=== PATIENT | female | born 1960 | race Caucasian/White ===

== ENCOUNTER 2017-03-27 14:26 | Inpatient (IN) | payer MEDICARE ==
--- NOTE | ~2017-03-27 | EKG ---
PATIENT: DANIELLE STAUFFER UNIT #: [id number] Ventricular Rate: 67 BPM Atrial Rate: 67 BPM P-R Interval: 146 ms QRS Duration: 78 ms Q-T Interval: 400 ms QTC Calculation(Bezet): 422 ms P [place]: 83 degrees Calculated R [place]: 91 degrees Calculated T [place]: 81 degrees Diagnosis Line: Normal sinus rhythm Diagnosis Line: Rightward axis Diagnosis Line: Septal infarct , age undetermined Diagnosis Line: Abnormal ECG Diagnosis Line: When compared with ECG of 14-NOV-2016 15:32, Diagnosis Line: Septal infarct is now Present Diagnosis Line: Confirmed by LOPEZ EAST MD ([id number]) on Diagnosis Line: 03/28/2017 8:49:03 AM INTERPRETING MD: CRUZITO HI
--- NOTE | ~2017-03-27 | CO ---
Unit #: [id number] #: [id number] Patient: DANIELLE STAUFFER [id number] [address] [place], [place] [address] [id number] I MR#: [id number] NAME: DANIELLE STAUFFER ROOM: 562 Age: 56 Sex: F Admission Date: 03/27/2017 : 1960 Attending Physician: Maximilian Magallanes M.D. Primary Care Physician: Lala Barroso M.D. Consultation Date: 03/28/2017 CONSULTATION REPORT REASON FOR CONSULTATION Cardiovascular management. HISTORY OF PRESENT ILLNESS This is a 56-year-old white female, well known to our group with a past medical history of COPD, on home oxygen; chronic diastolic congestive heart failure; aortic atheroma, on chronic anticoagulation with Coumadin; hypertension; hyperlipidemia; previous cerebrovascular accident; and seizures. The patient had a cardiac catheterization in 2013, which revealed an 80% to 90% stenosis in the left circumflex. The distal vessel was normal. Left main LAD and right coronary artery were normal. 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 She was continued on medical management. She was seen in the hospital in 11/2016 by Cardiology for atypical chest pain. She also had expressive aphasia and left extremity weakness. Neurology was consulted, and she was diagnosed with a TIA according to discharge summary. Her INR was subtherapeutic, and her Coumadin was adjusted. She presented to the hospital on 03/27/2017 due to increasing weakness, dizziness, and low hemoglobin that was diagnosed in Dr. Barroso's office. She was admitted for symptomatic anemia with a hemoglobin reportedly at 5.6. She was transfused with packed red blood cells, and fecal occult stool was obtained and was negative. CT of the abdomen and pelvis was negative for retroperitoneal hemorrhage. Hematology was consulted. Cardiology was consulted for cardiovascular management. The patient had some shortness of breath, but no reports of PND or orthopnea. She has had some dizziness, but no syncope. She denies palpitations, chest pain, or lower extremity edema. She has been reportedly compliant with medications. However, on admission, INR was subtherapeutic at 1.4. PAST MEDICAL HISTORY 1. Coronary artery disease, status post cardiac catheterization on 09/24/2014, which revealed left main, LAD, and right coronary artery normal. Left circumflex 80% to 90% with distal vessel normal. PDA normal. 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 Medical management. 2D echocardiogram 02/22/2014 revealed a left ventricular ejection fraction of 60% with mild mitral regurgitation and mild tricuspid regurgitation. 2. Transesophageal echocardiogram on 04/13/2016 revealed an ejection fraction of 55%. Mild to moderately dilated left atrium. Bubble study was performed with no shunt across the interatrial septum. Mild to moderately enlarged right atrial size. Mildly dilated right ventricle. Mild mitral regurgitation. Mild tricuspid regurgitation. No evidence of pericardial effusion. Severe atherosclerosis of the aorta with stage IV Unit #: [id number] #: [id number] Patient: DANIELLE STAUFFER atheromas. 3. 24-hour Holter monitor on 12/21/2015 revealed underlying normal sinus rhythm. Very rare premature ventricular complexes. No couplets or ventricular tachycardia. Very rare premature atrial complexes. No AV jairo block, sinus arrest, or sinus pauses. 4. Hypertension. 5. Hyperlipidemia. 6. Nonsustained ventricular tachycardia. 7. Previous cerebrovascular accident and TIA. 8. Seizure disorder. 9. Chronic anemia. 10. COPD, on home oxygen. 11. E coli urinary tract infection. 12. Anemia of chronic disease. 13. History of over anticoagulation with Coumadin, now subtherapeutic. 14. Nonsustained ventricular tachycardia, sinus bradycardia. 15. Chronic diastolic congestive heart failure. 16. Reformed tobacco abuse. 17. History of AV malformation, cauterized on 04/26/2015. PAST SURGICAL HISTORY 1. Cardiac catheterization. 2. Hysterectomy. 3. Removal of abdominal cyst. 4. Colonoscopy on 04/26/2015 revealed AV malformation of 5 mm in cecum. Mild diverticulosis. No active bleeding, polyps, masses, or colitis. Small hemorrhoids. AVM cauterized using APC. 5. EGD with biopsy and colonoscopy on 02/22/2015 with ulcerative gastritis and sigmoid diverticulosis. 6. History of EGD and colonoscopy with snare polypectomy in 09/30/2014. 7. History of intubation and bronchoscopy in 11/07/2013. HOME MEDICATIONS 1. Lipitor 20 mg p.o. at bedtime. 2. Potassium chloride 10 mEq p.o. daily. 3. Isosorbide mononitrate 60 mg p.o. daily. 4. Norvasc 5 mg p.o. daily. 5. Lisinopril 5 mg p.o. daily. 6. Coumadin 1 mg p.o. daily. 7. Acetaminophen 650 mg p.o. every 4 hours p.r.n. for pain. 8. Advair one inhalation p.o. b.i.d. 9. Nitroglycerin 0.4 mg sublingual every 5 minutes x3 for chest pain. 10. Aspirin 81 mg p.o. daily. 11. Albuterol one puff inhalation daily. 12. Symbicort one puff inhalation daily. ALLERGIES Sulfa and prednisone. SOCIAL HISTORY The patient has a history of tobacco abuse. She has been noted to use tobacco intermittently. There are no reports of alcohol or illicit drug use. FAMILY HISTORY Significant for coronary artery disease in both her parents. REVIEW OF SYSTEMS Unit #: [id number] #: [id number] Patient: DANIELLE STAUFFER A 10-point review of systems is negative except for details noted above in HPI. PHYSICAL EXAMINATION Exam completed by Dr. Carrion. VITAL SIGNS: Temperature 97.9, pulse 54, and blood pressure 121/57. CONSTITUTIONAL: This is a 56-year-old white female, in no acute distress. SKIN: Warm and dry. NECK: Supple. No jugular vein distention. No hepatojugular reflux. Normal carotid upstrokes. No carotid bruits auscultated. HEART: S1 and S2. Regular rate and rhythm. No murmurs, rubs, or gallops. LUNGS: Bilateral breath sounds have good air entry throughout all lung barrera. Respirations are even and nonlabored. No rales, rhonchi, or wheezes. ABDOMEN: Soft, nontender, and nondistended. Positive bowel sounds auscultated x4 quadrants. No ascites noted. EXTREMITIES: Bilateral lower extremities have no pretibial pitting edema. DP and PT pulses are 2+. Capillary refill is less than 2 seconds. DIAGNOSTIC STUDIES LABORATORY RESULTS: White blood cell count 7.8, hemoglobin 14.6, hematocrit 45.2, and platelets 158. Sodium 140, potassium 4.9, chloride 103, CO2 of 28, BUN 17, creatinine 0.9, glucose 146. INR 1.4. Troponin 0.05. IMAGING STUDIES: CT of the abdomen and pelvis with contrast reveals no acute findings. Atherosclerotic disease throughout the aorta with mild aneurysmal dilation of the distal descending thoracic aorta and infrarenal abdominal aorta. Chest x-ray reveals COPD with no acute findings. CARDIOVASCULAR STUDIES: Electrocardiogram reveals normal sinus rhythm with a ventricular rate of 67 beats per minute. Rightward axis deviation. No acute ST or T wave changes. QTc 422 milliseconds. IMPRESSION 1. Shortness of air, secondary to chronic obstructive pulmonary disease. 2. Reported anemia, status post 3 units of packed red blood cells. 3. Stable angina. 4. Coronary artery disease with 80% stenosis in the first obtuse margin of the left circumflex on 09/10/2014. 5. History of multiple TIAs secondary to aortic atheromas. 6. Subtherapeutic INR. 7. Normal LV function with an ejection fraction of 55%. PLAN 1. The patient presented to the hospital with reports of anemia as well as dizziness and weakness. She was admitted and transfused with packed red blood cells. 2. Cardiology was consulted for cardiovascular management. 3. The patient has some shortness of breath, which is likely from COPD. There are no reports of chest pain. 4. Her INR is subtherapeutic. Her Coumadin has been increased. Daily PT/INR will be obtained. 5. There is no evidence of congestive heart failure on exam. We will continue oral medications as dosed. Unit #: [id number] #: [id number] Patient: DANIELLE STAUFFER 6. The patient can likely go home tomorrow from a cardiac standpoint. Dictated by... Gianna Alcala APRN for Tyler Weeks TD: 03/30/2017 05:29 JOB #: [id number] CONSULTATION REPORT Page 1 of 1 X X CONSULTATION REPORT
--- NOTE | ~2017-03-27 | EKG ---
PATIENT: DANIELLE STAUFFER UNIT #: [id number] Ventricular Rate: 83 BPM Atrial Rate: 83 BPM P-R Interval: 140 ms QRS Duration: 80 ms Q-T Interval: 368 ms QTC Calculation(Bezet): 432 ms P [place]: 89 degrees Calculated R [place]: 91 degrees Calculated T [place]: 102 degrees Diagnosis Line: Normal sinus rhythm Diagnosis Line: Normal ECG Diagnosis Line: When compared with ECG of 31-MAR-2017 12:50, Diagnosis Line: (unconfirmed) Diagnosis Line: No significant change was found Diagnosis Line: Confirmed by KIRSTEN VILLAFANA MD ([id number]) on Diagnosis Line: 04/03/2017 5:17:48 PM INTERPRETING MD: ROSA M
--- NOTE | ~2017-03-27 | CO ---
Unit #: [id number] #: [id number] Patient: DANIELLE STAUFFER [id number] [address] [address] [id number] I MR#: [id number] NAME: DANIELLE STAUFFER. ROOM: 562 Age: 56 Sex: F Admission Date: 03/27/2017 : 1960 Attending Physician: Maximilian Magallanes M.D. Primary Care Physician: Lala Barroso M.D. CONSULTATION REPORT CHIEF COMPLAINT 1. Anemia. Left-sided lung mass, benign. Lost to followup. 2. CVA, embolic, on Coumadin. HISTORY OF PRESENT ILLNESS This is a 58-year-old female who had a CT of the chest during 10/2014. On the left side there was some abnormal noncalcified nodules. The patient had a PET scan on 11/11/2014. It turned out to be benign. She was lost to followup. The patient has had multiple CVA. They are embolic in nature. The patient has a significant atherosclerosis of the aorta. The patient had a CT of the abdomen and pelvis on 05/27/2017. It confirmed extensive atherosclerosis. In the distal descending thoracic aorta there is an aneurysm measuring 3.2. The patient has been taking Coumadin. Yesterday she came to the [facility] office and hemoglobin was about 5. She came to the hospital, receiving packed red blood cell transfusion. Her PT/INR and CBC are at present in error. I cannot accept the results. The patient had shortness of breath and dyspnea on exertion but it is chronic and nothing new. She was asymptomatic with hemoglobin of 5. PAST MEDICAL HISTORY 1. Left lung nodule, benign. 2. CVA, multiple. 3. Abdominal aortic aneurysm. 4. Chronic obstructive pulmonary disease. SOCIAL HISTORY The patient smoked 1 pack per day for 20 years. She quit many years ago. Denies alcohol use. She used to work in daycare. FAMILY HISTORY Father had myocardial infarction and mother had myocardial infarction. ALLERGIES Sulfa and prednisone. REVIEW OF SYSTEMS CONSTITUTIONAL: No fever, no chills, no sweats, no weight loss. EYES: No visual symptoms. Unit #: [id number] #: [id number] Patient: DANIELLE STAUFFER EARS, NOSE AND THROAT: There is no runny nose or sore throat or difficulty hearing. CARDIOVASCULAR: No chest pain. No shortness of breath. No palpitations. No orthopnea. No PND. RESPIRATORY: As mentioned above. GASTROINTESTINAL: No GI bleed. GENITOURINARY: No urinary frequency, hesitancy or urgency. No blood in the urine. MUSCULOSKELETAL: No muscle or joint pain. NEUROLOGIC: No headache. No numbness or tingling. No weakness. No seizure. PSYCHIATRIC: No anxiety, depression or mood disturbance. ENDOCRINE: No excessive urination or thirst. DERMATOLOGIC: No rash or change in the skin. ALLERGIC/IMMUNOLOGIC: No symptoms. HEMATOLOGIC/LYMPHATIC: Denies any symptoms. PHYSICAL EXAMINATION GENERAL: Patient is comfortable. ECOG is 0. The patient is pleasant. VITAL SIGNS: Blood pressure 130/64, temperature afebrile, pulse 58, respiratory rate 20, O2 saturation on room air 100%. HEENT: Moist mucosa. Pupils equally reactive to light. Extraocular muscles intact. Sclerae anicteric. No obvious bleeding from nasal mucosa or oral mucosa. Scalp normal. Hearing normal. NECK: No JVD. No lymphadenopathy. LYMPHATIC/HEMATOLOGIC: There is no palpable adenopathy in the neck, axilla or inguinal area. CARDIOVASCULAR: S1, S2. Regular rate and rhythm. No S3 or S4. RESPIRATORY: Bilateral wheezes. ABDOMEN/GASTROINTESTINAL: Abdomen is soft, nontender, nondistended. No hepatosplenomegaly. EXTREMITIES: There is no clubbing, no cyanosis, no edema. No varicose veins. NEUROLOGICAL: Patient is alert, awake and oriented x3. Cranial nerves II-XII are intact. Sensory grossly intact. Motor is 4/5 in all four extremities. Gait is normal. Station is normal. Language is normal. Memory is normal. DTRs +2 in all four extremities. MUSCULOSKELETAL: No joint swelling. No bony tenderness. No muscle tenderness. SKIN: No petechiae, no rash, no ecchymosis. PSYCHIATRIC: No anxiety. No delusions or hallucinations. There is no agitation. Eye contact is normal. Affect is appropriate. There is no flight of ideas. DIAGNOSTIC STUDIES LABORATORY: At present her CBC and PT/INR are in error. Creatinine 0.9, LFTs normal. Iron studies are pending. ASSESSMENT/PLAN This is a 56-year-old female with the followin. Left lung nodule. The patient had a PET scan during 11/2014. It was benign. She was lost to followup. As an outpatient will do a CT of the chest. 2. Anemia. She is anticoagulated. This most likely is bleeding from AVM in the presence of Coumadin. She is receiving packed red blood cell transfusion. I will check iron study. If it is low, then we will given IV iron. 3. Other conditions. The patient has had multiple CVAs. They are Unit #: [id number] #: [id number] Patient: DANIELLE STAUFFER embolic in nature. The patient has atherosclerosis in the aorta. The patient has aortic aneurysm. The patient is long-term anticoagulated. All stable. Dictated by... Tyler Solis TD: 03/28/2017 15:29 JOB #: [id number] CONSULTATION REPORT Page 1 of 1 X Young Barnard MD X CONSULTATION REPORT
--- NOTE | ~2017-03-27 | CR72 ---
[facility] A Service of [facility] & [facility] RADIOLOGY TEXT RESULTS PATIENT: DANIELLE STAUFFER LOCATION: [facility] 562- : 58 UNIT #: [id number] AGE: [address]: Maximilian Magallanes MD SEX: F ORDER DR: [id number] [facility] [address]. [place], [place] [address] [id number] I MR#: [id number] Acc #: [id number] NAME: DANIELLE STAUFFER : 1960 SEX: F STUDY DATE/TIME: 03/30/2017 16:46 UNIT: [facility] ROOM: [facility] STUDY DESCRIPTION: CR Chest Single View Portable Attending Physician: Maximilian Magallanes M.D. Ordering Physician: Maximilian Magallanes M.D. Primary Care Physician: Lala Barroso M.D. MEDICAL IMAGING REPORT This report is preliminary unless electronic signature is present EXAM Portable chest HISTORY Shortness of air. Chest congestion, chronic, worse today. FINDINGS There is bilateral emphysema and hyperinflation of both lungs. No airspace infiltrates or effusions. Stable 8 mm nodule in the left upper lung compared to prior chest x-rays dating back to at least 03/31/2015, indicating a benign granuloma. Minimal right lower thoracic curve. IMPRESSION No acute findings. No active disease in the lungs. Mild hyperinflation of both lungs. Stable incidental granuloma in the left upper lung. Dictated by... Chao Kellogg M.D. THIS IS AN ELECTRONICALLY VERIFIED REPORT hCao Kellogg M.D. at 04/02/2017 10:14 AM DFL/pcl TD: 03/30/2017 23:13 JOB #: [id number] MEDICAL IMAGING REPORT Page 1 of 1 COPY
--- NOTE | ~2017-03-27 | CT2 ---
[facility] A Service of [facility] RADIOLOGY TEXT RESULTS PATIENT: DANIELLE STAUFFER LOCATION: [facility] [address] : 58 UNIT #: [id number] AGE: [address]: Maximilian Magallanes MD SEX: F ORDER DR: [id number] [facility] [address] [place], [place] [address] [id number] I MR#: [id number] Acc #: [id number] NAME: DANIELLE STAUFFER. : 1960 SEX: F STUDY DATE/TIME: 03/27/2017 18:21 UNIT: CEDOF ROOM: 86494 STUDY DESCRIPTION: CT Abd and Pelv W Cont Attending Physician: Maximilian Magallanes M.D. Ordering Physician: Woodrow Rodriguez M.D. Primary Care Physician: Lala Barroso M.D. MEDICAL IMAGING REPORT This report is preliminary unless electronic signature is present EXAM CT abdomen and pelvis with contrast INDICATIONS Anemia. Nausea for the past 2 days. PROCEDURE Contrast-enhanced CT abdomen and pelvis. 100 mL of Isovue-370. This CT exam was performed with one or more of the following radiation dose reduction techniques: Automatic exposure control, adjustment of mA and/or kV according to patient size, and iterative reconstruction. COMPARISON 06/05/2016 FINDINGS Emphysematous change in the lung bases. ABDOMEN WITH CONTRAST: Liver, spleen, kidneys, adrenal glands, pancreas, gallbladder unremarkable. The bowel loops are nondilated. Atherosclerotic disease throughout the aorta. The distal descending thoracic aorta measures 3.2 cm. Infrarenal abdominal aorta measures up to 2.8 cm. PELVIS WITH CONTRAST: Previous hysterectomy. No pelvic mass or fluid. No aggressive appearing bone lesion. IMPRESSION 1. No acute findings. 2. Atherosclerotic disease throughout the aorta with mild aneurysmal dilation of the distal descending thoracic aorta and ectasia of the infrarenal abdominal aorta. [facility] A Service of [facility] RADIOLOGY TEXT RESULTS PATIENT: DANIELLE STAUFFER LOCATION: [facility] 562 : 58 UNIT #: [id number] AGE: [address]: Maximilian Magallanes MD SEX: F ORDER DR: Dictated by... Woodrow Friedman M.D. THIS IS AN ELECTRONICALLY VERIFIED REPORT Woodrow Friedman M.D. at 03/28/2017 7:37 AM EED/psc TD: 03/28/2017 00:15 JOB #: [id number] MEDICAL IMAGING REPORT Page 1 of 1 COPY
--- NOTE | ~2017-03-27 | CO ---
Unit #: [id number] #: [id number] Patient: DANIELLE STAUFFER [id number] [address] [place], [place] [address] [id number] I MR#: [id number] NAME: DANIELLE STAUFFER. ROOM: 562 Age: 56 Sex: F Admission Date: 03/27/2017 : 1960 Attending Physician: Maximilian Magallanes M.D. Primary Care Physician: Lala Barroso M.D. Consultation Date: 03/28/2017 CONSULTATION REPORT HISTORY OF PRESENT ILLNESS This is a 56-year-old lady, well known to our service secondary to multiple prior admission. The patient has a history of multiple CVAs, aortic atheroma. The patient is on chronic anticoagulation with coronary artery disease. The patient has CHF, COPD, chronic respiratory failure, seen in the physician's office for PT/INR check. She was told that it was elevated, because the patient was symptomatic, she is having increasing weakness and dizziness. She was sent to the emergency room. CBC showed to be hemoglobin of 5 and directed from the ER to admission, the patient received transfused. Occult blood was negative. CT of the abdomen and pelvis is negative, shows no evidence of hematoma, no evidence of lung disease. The patient denies any other symptoms. No chest pain. No shortness of air. No fevers, chills, cough, nausea, vomiting, diarrhea, dysuria, hematemesis. The patient has no bloody stools. REVIEW OF SYSTEMS The patient has a 12-point review of systems which is negative except as above. PAST MEDICAL HISTORY Significant for asthma, COPD, hypertension, congestive heart failure, history of stroke, TIA, history of seizures, has had PR x2. PAST SURGICAL HISTORY Partial hysterectomy and abdominal cystectomy. ALLERGIES The patient is allergic to sulfa. HOME MEDICATIONS Include lisinopril 5 mg daily, Coumadin 1 mg daily, acetaminophen 650 mg every 4 hours, Advair 1 inhaled b.i.d. 250/50, aspirin 81 mg daily, Ventolin 2 puffs q.4 hours p.r.n., Lipitor 20 mg at bedtime, Klor-Con 10 mEq daily, isosorbide 5 mg daily, nitroglycerin as needed. FAMILY HISTORY Significant for heart disease. SOCIAL HISTORY The patient is an active smoker. Denies alcohol or drugs. PHYSICAL EXAMINATION VITAL SIGNS: T-current 98.0, pulse 58, respiratory rate 20, blood pressure is 100/59, sat 100% on 3 L nasal cannula. Unit #: [id number] #: [id number] Patient: DANIELLE STAUFFER HEENT: Extraocular movements are intact. CHEST: Clear to auscultation bilaterally. NECK: Shows no accessory muscle use. No JVD. No significant lymphadenopathy. The breath sounds are very decreased bilaterally. CARDIOVASCULAR: Irregular. ABDOMEN: Soft, nontender, and nondistended. EXTREMITIES: Shows no significant edema. DIAGNOSTIC STUDIES LABORATORY RESULTS: BNP is 143. INR is 1.4. CBC, white count had been 7.8, platelets of 158, apparently it is currently 10. IMAGING STUDIES: Chest x-ray shows no evidence of infiltrate; therefore, I am going to treat this as a COPD exacerbation. We are going to do nasal swab. We are going to put her on scheduled nebs and inhaled steroids. We will try to hold off on systemic steroids due to the issues with fluid retention. Thank you very much for this consult and allowing us to participate in the care of this patient. Please page me at [phone] if you have any questions. Dictated by... Gabbie Bran M.D. HARLEEN/yanique TD: 03/29/2017 01:26 JOB #: [id number] CONSULTATION REPORT Page 1 of 1 X Suhail Bran MD X CONSULTATION REPORT
--- NOTE | ~2017-03-27 | HP ---
Unit #: [id number] #: [id number] Patient: DANIELLE HOGAN [id number] [address] [address] [id number] MR#: [id number] NAME: DANIELLE HOGAN ROOM: Age: 56 Sex: F Admission Date: 03/27/2017 : 1960 Attending Physician: Mary Hale M.D. Primary Care Physician: Lala Barroso M.D. HISTORY AND PHYSICAL ADMISSION DIAGNOSES 1. Symptomatic anemia. 2. History of aortic atheroma, on chronic anticoagulation. 3. History of multiple cerebrovascular accidents in the past. 4. History of coronary artery disease. 5. Hypertension. 6. Dyslipidemia. 7. History of nonsustained ventricular tachycardia. 8. History of chronic diastolic heart failure. 9. Chronic obstructive pulmonary disease. 10. Chronic respiratory failure, on home oxygen. HISTORY OF PRESENT ILLNESS Ms. Hogan is a 56-year-old female well known to our service secondary to multiple prior admissions. She is the one with the past medical history of multiple CVAs and aortic atheroma, on chronic anticoagulation along with the coronary artery disease, CHF, COPD and chronic respiratory failure with the previous multiple CVAs and strokes, was seen at the primary care physician's office, Dr. Barroso's office, for PT/INR check. When she was also symptomatic with increasing weakness and dizziness her CBC showed hemoglobin of 5 and she was directed to [facility] ER. In the emergency department she was getting transfused. I discussed the case with the ER physician. Her occult blood was negative and patient also had the CT abdomen and pelvis to rule out retroperitoneal hematoma which was negative. Currently patient denies any other symptoms, denies any active chest pain, unusual shortness of air, fever, chills, cough, nausea, vomiting, diarrhea, dysuria or bloody emesis, denies any bloody stools. REVIEW OF SYSTEMS A 12-point review of systems on this patient is basically negative except as above. PAST MEDICAL HISTORY As above in HPI. PAST SURGICAL HISTORY Past surgical history is significant for: 1. Hysterectomy. 2. Abdominal cyst surgery. HOME MEDICATIONS I do not have in front of me but this will be clarified through the pharmacy and patient will be restarted accordingly. Unit #: [id number] #: [id number] Patient: DANIELLE HOGAN ALLERGIES Prednisone and sulfa. SOCIAL HISTORY She is an active smoker, denies any alcohol or illicit drugs. FAMILY HISTORY Significant for heart disease. PHYSICAL EXAMINATION GENERAL: On the physical exam she is a 56-year-old female not in acute distress. VITAL SIGNS: BP 98/51. Heart rate 72. Respirations 22. Temperature 97.9. HEENT: Head is atraumatic. Pupils equal, round and reactive to light and accommodation. Extraocular muscles intact. Oropharynx clear. NECK: Neck is supple. No mass. No JVD. No bruits. CHEST: Diminished at the bases but generally clear. CARDIOVASCULAR EXAM: S1, S2. No murmurs. ABDOMEN: Abdomen is soft, nontender and nondistended. EXTREMITIES: Lower extremities without any cyanosis, clubbing or edema. NEUROLOGIC: Patient grossly intact. No focal deficits. DIAGNOSTIC STUDIES LABORATORY: Chemistry unremarkable except for potassium of 3.3 and a CO2 of 32. Set of cardiac enzymes negative. Coagulation panel: PT and INR 20 and 1.9. Hematology significant for white count of 12.5 and hemoglobin and hematocrit 5.6 and 17, platelets 340. ASSESSMENT AND PLAN 1. Acute symptomatic anemia: Transfused two units. Stool for occult blood negative. CT abdomen and pelvis negative for retroperitoneal hemorrhage. Will ask Hematology for evaluation. May need some iron transfusions. 2. History of aortic atheroma, on chronic anticoagulation: Will continue. 3. History of previous multiple cerebrovascular accidents and transient ischemic attacks: Continue home meds. 4. History of coronary artery disease and congestive heart failure: Continue home medications. 5. History of chronic obstructive pulmonary disease: Continue home meds at the baseline. 6. History of chronic respiratory failure, O2 dependent. 7. GI and DVT prophylaxis. Dictated by Maximilian Magallanes M.D. OC/angie TD: 03/27/2017 20:49 JOB #: [id number] Unit #: [id number] #: [id number] Patient: DANIELLE HOGAN HISTORY AND PHYSICAL Page 1 of 1 X Chubinidze,Maximilian MD X HISTORY AND PHYSICAL
--- NOTE | ~2017-03-27 | CR63 ---
[facility] A Service of [facility] & [facility] RADIOLOGY TEXT RESULTS PATIENT: DANIELLE STAUFFER LOCATION: [facility] 562-01 : [birth year] UNIT #: [id number] AGE: [address]: Maximilian Magallanes MD SEX: F ORDER DR: [id number] [facility] [address] [facility]. [place], [place] [address] [id number] MR#: [id number] Acc #: [id number] NAME: DANIELLE STAUFFER. : 1960 SEX: F STUDY DATE/TIME: 03/28/2017 17:25 UNIT: [facility] ROOM: [facility] STUDY DESCRIPTION: CR Chest 2 View Attending Physician: Maximilian Magallanes M.D. Ordering Physician: Alexis Carrion M.D. Primary Care Physician: Lala Barroso M.D. MEDICAL IMAGING REPORT This report is preliminary unless electronic signature is present EXAM Chest x-ray, 03/28/2017. INDICATION Shortness of air and chest congestion over the last few weeks. FINDINGS PA and lateral views of the chest compared with 11/14/16. Cardiac and mediastinal contours remain normal. Atherosclerotic disease in the aorta. Nodule in the left upper lobe appears to reflect a granuloma and is unchanged. Lungs, otherwise, are clear. No pneumothorax. IMPRESSION COPD. No active disease. Dictated by... Shakir Carey Jr., M.D. THIS IS AN ELECTRONICALLY VERIFIED REPORT Shakir Carey Jr., M.D. at 03/29/2017 2:07 PM NOE/bhargavi TD: 03/28/2017 21:13 JOB #: [id number] MEDICAL IMAGING REPORT Page 1 of 1 COPY
--- NOTE | ~2017-03-27 | A ---
[facility] Nutrition Therapy DATE: 03/28/17 Patient: DANIELLE STAUFFER Physician: JOÃO Address: [address] [place] [address] Room/Bed: [address] [place] [address], Zip: [place] [address] Admit Date: 03/27/17 Date of : 58 Height: 5 4 Weight: 110 49.89 NUTRITIONAL ASSESSMENT: REASON: LOW BMI PT IS 56 Y.O FEMALE ADMITTED FOR SYMPTOMATIC ANEMIA PMH: MULTIPLE CVAs, TIA, HTN, SEIZURE DISORDER, CAD, COPD, ASTHMA, CHF, GI BLEED, DIVERTICULITIS Anthropometrics: 5'4", WT: 105-110# (PER PT) (48-50 KG), BMI: 18.0-18.9, 88%IBW-92%IBW Labs: K+: 3.3 Meds: LIPITOR, COUMADIN, PROTONIX I/O & Bowel function: NOT AVAILABLE Skin Integrity: NO KNOWN SKIN ISSUES Estimated Nutrition Needs: INCREASED NUTRIENT NEEDS 2' PT UNDERWEIGHT, PMH Assessment: CHART REVIEWED AND EVENTS NOTED. PT SEEN FOR UNDERWEIGHT STATUS. PT REPORTS FAIR PO INTAKE AND APPETITE, ADDS "MY APPETITES COMES AND GOES" AND "HAS NOT ALWAYS BEEN A BIG EATER". PT REPORTS NO RECENT WEIGHT LOSS-NOTES BEING A SMALL WOMEN. PER [employer], PT'S WEIGHTS HAVE BEEN STABLE PAST FEW YEARS. THIS RD ENCOURAGED SMALL FREQUENT MEALS + SUPPLEMENT INTAKE FOR ADEQUATE KCAL AND PROTEIN INTAKE, PT AGREED TO ENSURE SHAKES TID W/MEALS. PT ADDS SHE DRINKS ENSURE SHAKES AT HOME. PT REPORTED NO DIET QUESTIONS AT THIS TIME. RD TO FOLLOW. SEE RECOMMENDATIONS BELOW. Dx: UNDERWEIGHT R/T DECREASED PO INTAKE, PMH AEB LOW BMI OF 18.0-18.9., PT REPORT ABOVE. Intervention: 1. REGULAR DIET 2. ENSURE SHAKES TID Monitoring, Evaluation and Goals: 1. ORAL INTAKE; CONSUME >50% OF MEALS AND SUPPLEMENTS W/NO C/O N/V/D 2. WEIGHTS; PROMOTE GRADUAL WEIGHT GAIN TOWARDS HEALTHY BMI 3. LABS; WNL: K+ MONITOR: -PO INTAKE/APPETITE -WEIGHTS -SUPPLEMENT INTAKE [facility] Nutrition Therapy DATE: 03/28/17 Patient: DANIELLE STAUFFER Physician: JOÃO Address: [address] [place] [address] Room/Bed: [address] [place] [address], Zip: [place] [address] Admit Date: 03/27/17 Date of : 58 Height: 5 4 Weight: 110 49.89 Recommendations: 1. PLEASE ORDER STRAW ENSURE SHAKES TID W/MEALS 2. PLEASE WEIGH q 3 DAYS FOR MONITORING PURPOSES 3. CONTINUE W/CURRENT DIET ORDER ABOVE. RD WILL F/U PER PROTOCOL PT IS MILD/MODERATELY COMPROMISED Respectfully, IVETTE URIOSTEGUI MS, RD, LD [employer] cc: client file
--- NOTE | ~2017-03-27 | DS ---
Unit #: [id number] #: [id number] Patient: DANIELLE HOGAN [id number] [facility] [address] [facility]. [place], [place] [address] [id number] MR#: [id number] NAME: DANIELLE HOGAN. ROOM: 562 Age: 56 Sex: F Admission Date: 03/27/2017 : 1960 Discharge Date: 04/02/2017 Attending Physician: Maximilian Magallanes M.D. Primary Care Physician: Lala Barroso M.D. DISCHARGE SUMMARY CONSULTATION DURING HOSPITALIZATION 1. Dr. Morrison - Pulmonary Services. 2. Dr. Aguero - Neuro Services. 3. Dr. Jones - Cardiology Services. 4. Dr. Barnard - Hematology Services. ADMITTING PHYSICIAN Dr. Magallanes DISCHARGING PHYSICIAN Dr. Lala Barroso HISTORY OF PRESENT ILLNESS Ms. Danielle Hogan is a 56-year-old female who has had multiple admissions. Has a past history of multiple CVAs and aortic atheroma, on chronic anticoagulation therapy. Was seen at our office. PT/INR was checked. She was symptomatic with a hemoglobin of 5 and was admitted to [facility]. HOSPITAL COURSE The patient was admitted to telemetry unit. Two units of packed RBC transfusion was done. Hemoccult for stool was done which was negative. CT of abdomen and pelvis was done which was negative for retroperitoneal hemorrhage. Dr. Barnard from hematology services consulted. As per Dr. Barnard, possibly bleeding from AVM and the presence of Coumadin. Iron study was being checked. The patient has had multiple CVAs. They are embolic in nature. The patient also has atherosclerosis in the aorta. She also has aortic aneurysm. She will need fdc anticoagulation therapy. The patient also has left lung nodule. PET scan was done in November 2014. It is benign. The patient was also seen by cardiology for shortness of breath. Most likely that is secondary to COPD and anemia. The patient does have coronary artery disease with 80% stenosis in the first obtuse marginal of the left circumflex. Normal left ventricular ejection fraction of 55%. The patient did not have any chest pain and most likely shortness of breath was COPD. Oral medications were continued. No cardiac workup is recommended at this time. Dr. Bran was consulted for COPD. The patient does have a history of chronic and severe COPD. She did receive IV Solu-Medrol and that has been changed to Medrol Dosepak. The patient is doing well and is being discharged home. The patient did not have any infiltrate. Unit #: [id number] #: [id number] Patient: DANIELLE HOGAN Dr. Aguero was also consulted because of ongoing numbness and tingling sensation. Patient has had extensive workup done even in the past. Dr. Aguero would not like to see her again. He had discussion with patient 30 days ago with patient and patient's family. As per his recommendation, patient can be transferred to another facility if needed. DISCHARGE MEDICATIONS 1. Albuterol, continue nebulizer treatment. 2. Symbicort, continue home dose. 3. Tylenol 650 q.4 p.r.n. 4. Coumadin 0.5 mg from Sunday. Patient will be off today and tomorrow. 5. Norvasc is being discontinued. 6. Continue Lipitor 20 mg at bedtime. 7. Lisinopril 5 mg daily. 8. Aspirin 81 mg daily. 9. Potassium is being discontinued as potassium level is high. 10. Isosorbide 30 mg daily. Please note - dose of Imdur is being decreased from 60 to 30. 11. Nitroglycerin on a p.r.n. basis. 12. Cyanocobalamin 1000 mcg p.o. daily. Please note - patient did receive subcu during hospitalization. LAB WORKUP ON DISCHARGE Potassium 4.9, WBC 10.5, hemoglobin 14.2, hematocrit 44.3, platelet count of 163. EXAMINATION ON DISCHARGE VITAL SIGNS: Blood pressure is 117/58, respiratory rate 18, pulse is 66, temperature 97.5, oxygen saturation is 97%. HEENT: Head is normocephalic. Eye movements normal. CHEST: Fair air entry. CVS: S1 and S2 positive. (1) . EXTREMITIES: Negative edema. DISCHARGE INSTRUCTIONS 1. The patient is being discharged home in stable condition. 2. Medication as per Med Rec. 3. Hold Coumadin today and tomorrow and start from Sunday. 4. Follow up with primary care provider in one week. 5. PT and INR to be done on Sunday. 6. CBC and BMP to be done on Sunday. Plan of care has been discussed with patient and patient's family in the room. Dictated by... Tyler Waldron/china TD: 04/02/2017 13:30 JOB #: [id number] Unit #: [id number] #: [id number] Patient: DANIELLE HOGAN DISCHARGE SUMMARY Page 1 of 1 X Lala Barroso MD X DISCHARGE SUMMARY
--- NOTE | ~2017-03-27 | EKG ---
PATIENT: DANIELLE STAUFFER UNIT #: [id number] Ventricular Rate: 81 BPM Atrial Rate: 81 BPM P-R Interval: 138 ms QRS Duration: 78 ms Q-T Interval: 368 ms QTC Calculation(Bezet): 427 ms P Scribner: 81 degrees Calculated R Scribner: 93 degrees Calculated T Scribner: 80 degrees Diagnosis Line: Normal sinus rhythm Diagnosis Line: Rightward axis Diagnosis Line: Borderline ECG Diagnosis Line: When compared with ECG of 27-MAR-2017 16:43, Diagnosis Line: No significant change was found Diagnosis Line: Confirmed by KIRSTEN VILLAFANA MD ([id number]) on Diagnosis Line: 04/03/2017 5:16:41 PM INTERPRETING MD: ROSA M
[~2017-03-27 14:26] MED LIST: ACETAMINOPHEN650 M4 PO; ALB/IPRATROPIUM/1 E1 INH; ALBUTEROL 0.5ML INH; ALBUTEROL MININEB NEB; ALBUTEROL17 G1 IH; ALBUTEROL17 GM INH; ALBUTEROL17 GM PO; ALBUTEROL2.5 MG/0.5 IH; ALPRAZOLAM0.25 MG PO; ASPIRIN EC81 M1 PO; ASPIRIN PO; ASPIRIN81 M2 PO; ASPIRIN81 MG PO; ATORVASTATIN CA80 MG PO; AZITHROMYCIN500 MG PO; BAYER CHEWABLE81 MG PO; BENADRYL PO; BENZONATATE PO; CECLOR PO; CEFTIN PO; CEFTIN500 MG PO; COMBIVENT MININEB INH; COMBIVENT U/D3 M1 INH; COREG3.125 MG PO; COUMADIN PO; COUMADIN1 MG PO; COUMADIN2.5 MG PO; DIGESTIVE PROB250 MG PO; DOK100 MG PO; DOXYCYCLINE150 MG PO; EFFER-K 20 MEQ20 MEQ PO; ENOXAPARIN40 MG/0.1 SQ; FLAGYL250 M1 PO; FLONASE 0.05% N16 G1; FLORASTOR250 M1 PO; FLORINEF0.1 M1 PO; FLORINEF0.1 MG PO; FORADIL12 MCG NEB; FUROSEMIDE40 MG PO; HYDROCORT PO; HYDROCORTISONE10 M1 PO; IMDUR-ER30 M1 PO; IMDUR-ER30 M3 PO; IMDUR-ER30 MG PO; IMDUR-ER60 M1 PO; IMDUR-ER60 M2 PO; IMMODIUM PO; IMODIUM2 MG PO; ISORDIL PO; ISORDIL10 MG PO; ISOSORBIDE DINI10 MG PO; ISOSORBIDE DINI30 MG PO; ISOSORBIDE MONO30 M1 PO; K-DUR10 MEQ PO; K-DUR20 ME2 PO; KCL PO; KEPPRA1000 MG PO; KEPPRA500 M1 PO; LASIX PO; LASIX20 MG PO; LAXATIVE5 M1 PO; LEVAQUIN250 MG PO; LEVAQUIN750 MG PO; LEVETIRACETAM1000 MG PO; LIPITOR40 MG PO; LIPITOR80 MG PO; LOPRESSOR PO; MAGNESIUM400 MG PO; MEDROL DOSEPAK4 MG PO; MEDROL4 MG PO; MEDROL4 MG/DOSE- PO; METOPROLOL SUCC25 MG PO; METOPROLOL TAR25 MG PO; METOPROLOL TART25 MG PO; MUCINEX DM ER1 EACH PO; NITROGLYGERIN0.4 MG SL; NITROSTAT0.4 MG SL; OMNICEF300 MG PO; PAIN RELIEF325 MG PO; PANTOPRAZOLE SO40 MG PO; PERCOCET5/325 PO; PHENERGAN PR; PHENERGAN/CODEIN5 ML PO; POTASSIUM CHLO10 ME1 PO; POTASSIUM CHLO10 MEQ PO; PREDNISOLONE5 MG PO; PREDNISONE PO; PREDNISONE10 MG PO; PROAIR HFA8.5 GM IH; PROAIR HFA8.5 GM INH; PROAIR RESPICL90 MCG INH; PROTONIX PO; PROTONIX40 MG/BLIS PO; QVAR7.3 G1 IH; SPIRIVA; SPIRIVA RESPIMAT4 G1; SPIRIVA18 MCG INH; SYMBICORT 160/4.6 GM INH; SYMBICORT INH; TAMIFLU75 M1 PO; TESSALON PERLE100 M1 PO; TOPROL XL PO; TOPROL XL50 MG PO; TYLENOL325 M1 PO; WARFARIN SODIUM1 M1 PO; WARFARIN SODIUM2 M1 PO; XOPENEX1.25 MG/0. NEB; ZITHROMAX PO; ZITHROMAX1 G/PKT PO; ZITHROMAX500 MG PO; ZOCOR20 MG PO; [UNRECOGNIZED DRUG - REMARK]
[2017-03-27] MEDS ORDERED: LIPITOR20 MG PO (17:17)
[2017-03-27] MEDS ORDERED: ISOSORBIDE MONO60 M1 PO (17:17)
[2017-03-27] MEDS ORDERED: PATIENT'S PHARMACY (17:17)
[2017-03-27] MEDS ORDERED: KCL PO (17:17)
[2017-03-27] MEDS ORDERED: LISINOPRIL5 MG PO (17:18)
[2017-03-27] MEDS ORDERED: COUMADIN1 MG PO (17:18)
[2017-03-27] MEDS ORDERED: NORVASC PO (17:18)
[2017-03-27] MEDS ORDERED: ACETAMINOPHEN PO (17:18)
[2017-03-27] MEDS ORDERED: ADVAIR 500-501 EACH PO (17:19)
[2017-03-27] MEDS ORDERED: NITROGLYGERIN0.4 MG PO (17:19)
[2017-03-27] MEDS ORDERED: SYMBICORT INH (17:20)
[2017-03-27] MEDS ORDERED: ASPIRIN81 M2 PO (17:20)
[2017-03-27] MEDS ORDERED: ALBUTEROL17 GM INH (17:20)
[2017-03-27 17:23] LABS: ALBUMIN SERUM 4.7 g/dL (3.5-5.0); BILIRUBIN,TOTAL 0.6 mg/dL (0.2-2.0); CALCIUM SERUM 9.3 mg/dL (8.4-10.2); GLOM FILT RATE Estimated 62.5 mL/min (>60); POTASSIUM 3.3 mmol/L (3.5-5.1)
[2017-03-27 20:06] LABS: POC - CKMB <1.0 ng/mL (0.0-7.9); POC - TROPONIN <0.05 ng/mL (<=0.05)
[2017-03-28 13:16] LABS: HEMATOCRIT 45.2 % (35.0-45.0); MEAN CORPUSCULAR HEMOGLOBIN 28.3 PG (28-34); MEAN CORPUSCULAR HGB CONC 32.2 g/dL (30-36); MEAN PLATELET VOLUME 9.1 FL (6.5-11.5); RED BLOOD COUNT 5.15 X10e (3.90-5.30); RED CELL DISTRIBUTION WIDTH 13.6 % (11.0-15.5); WHITE BLOOD COUNT 7.8 X10e3 (4.0-10.5)
[2017-03-28 13:17] LABS: MEAN CELL VOLUME 87.9 FL (83-96)
[2017-03-28 13:18] LABS: HEMOGLOBIN 14.6 gm/dL (12.0-16.0)
[2017-03-28 13:27] LABS: BUN/CREATININE RATIO 18.88; CALCIUM SERUM 9.2 mg/dL (8.4-10.2); CREATININE SERUM 0.9 mg/dL (0.6-1.4)
[2017-03-28 13:30] LABS: POTASSIUM 4.9 mmol/L (3.5-5.1)
[2017-03-28 16:42] LABS: INR 1.4
[2017-03-28 17:02] LABS: PROTHROMBIN TIME (PATIENT) 14.8 SECONDS (9.6-11.5)
[2017-03-29 06:41] LABS: HEMATOCRIT 42.5 % (35.0-45.0); HEMOGLOBIN 13.7 gm/dL (12.0-16.0); MEAN CELL VOLUME 87.4 FL (83-96); MEAN CORPUSCULAR HEMOGLOBIN 28.1 PG (28-34); MEAN CORPUSCULAR HGB CONC 32.1 g/dL (30-36); RED BLOOD COUNT 4.87 X10e (3.90-5.30); RED CELL DISTRIBUTION WIDTH 13.9 % (11.0-15.5)
[2017-03-29 06:54] LABS: INR 1.7; PROTHROMBIN TIME (PATIENT) 18.1 SECONDS (9.6-11.5)
[2017-03-29 07:38] LABS: FERRITIN 162 ng/mL (11-307)
[2017-03-29 09:17] LABS: BILIRUBIN,TOTAL 2.3 mg/dL (0.2-2.0); BUN/CREATININE RATIO 16.66; CALCIUM SERUM 9.1 mg/dL (8.4-10.2); CREATININE SERUM 0.9 mg/dL (0.6-1.4); POTASSIUM 3.9 mmol/L (3.5-5.1); PROTEIN TOTAL SERUM 5.9 g/dL (6.0-8.3)
[2017-03-30 06:31] LABS: HEMATOCRIT 45.2 % (35.0-45.0); HEMOGLOBIN 14.5 gm/dL (12.0-16.0); MEAN CELL VOLUME 88.5 FL (83-96); MEAN CORPUSCULAR HEMOGLOBIN 28.3 PG (28-34); MEAN PLATELET VOLUME 9.3 FL (6.5-11.5); RED BLOOD COUNT 5.1 X10e (3.90-5.30); RED CELL DISTRIBUTION WIDTH 13.9 % (11.0-15.5); WHITE BLOOD COUNT 8.2 X10e3 (4.0-10.5)
[2017-03-30 06:47] LABS: INR 2.4; PROTHROMBIN TIME (PATIENT) 25.9 SECONDS (9.6-11.5)
[2017-03-30 07:01] LABS: ALBUMIN SERUM 4.5 g/dL (3.5-5.0); BILIRUBIN,TOTAL 0.8 mg/dL (0.2-2.0); BUN/CREATININE RATIO 21.66; CALCIUM SERUM 9.6 mg/dL (8.4-10.2); CREATININE SERUM 1.2 mg/dL (0.6-1.4); GLOM FILT RATE Estimated 50.1 mL/min (>60); POTASSIUM 4.3 mmol/L (3.5-5.1)
[2017-03-31 06:08] LABS: PROTHROMBIN TIME (PATIENT) 44.2 SECONDS (9.6-11.5)
[2017-03-31 06:26] LABS: CALCIUM SERUM 9.3 mg/dL (8.4-10.2); CREATININE SERUM 0.9 mg/dL (0.6-1.4); POTASSIUM 4.3 mmol/L (3.5-5.1)
[2017-03-31 14:43] LABS: CK TOTAL 40 IU/L (26-140)
[2017-03-31 20:45] LABS: CK TOTAL 42 IU/L (26-140)
[2017-04-01 05:30] LABS: HEMATOCRIT 41.8 % (35.0-45.0); HEMOGLOBIN 13.3 gm/dL (12.0-16.0); MEAN CELL VOLUME 87.9 FL (83-96); MEAN CORPUSCULAR HGB CONC 31.8 g/dL (30-36); RED BLOOD COUNT 4.75 X10e (3.90-5.30); RED CELL DISTRIBUTION WIDTH 13.7 % (11.0-15.5)
[2017-04-01 05:31] LABS: WHITE BLOOD COUNT 15.8 X10e3 (4.0-10.5)
[2017-04-01 05:35] LABS: PROTHROMBIN TIME (PATIENT) 59.6 SECONDS (9.6-11.5)
[2017-04-01 05:43] LABS: INR 5.3
[2017-04-01 06:41] LABS: BUN/CREATININE RATIO 38.88; CALCIUM SERUM 9.3 mg/dL (8.4-10.2); CREATININE SERUM 0.9 mg/dL (0.6-1.4); POTASSIUM 4.5 mmol/L (3.5-5.1)
[2017-04-02 06:50] LABS: HEMATOCRIT 44.3 % (35.0-45.0); HEMOGLOBIN 14.2 gm/dL (12.0-16.0); MEAN CELL VOLUME 88.3 FL (83-96); MEAN CORPUSCULAR HEMOGLOBIN 28.2 PG (28-34); MEAN CORPUSCULAR HGB CONC 31.9 g/dL (30-36); MEAN PLATELET VOLUME 9.5 FL (6.5-11.5); RED BLOOD COUNT 5.02 X10e (3.90-5.30); RED CELL DISTRIBUTION WIDTH 13.8 % (11.0-15.5); WHITE BLOOD COUNT 10.5 X10e3 (4.0-10.5)
[2017-04-02 07:04] LABS: INR 3.2; PROTHROMBIN TIME (PATIENT) 34.7 SECONDS (9.6-11.5)
[2017-04-02 08:01] LABS: CALCIUM SERUM 9.2 mg/dL (8.4-10.2); CREATININE SERUM 0.8 mg/dL (0.6-1.4); GLOM FILT RATE Estimated 81.9 mL/min (>60)
[2017-04-02 08:04] LABS: POTASSIUM 5.6 mmol/L (3.5-5.1)
[2017-04-02] MEDS ORDERED: CYANOCOBALAM1000 MCG PO (11:55)
== END 2017-04-02 13:47 | disposition home or self-care (01) | DRG 811 ==
LOC: CED 14:26 → CEDOF 19:10 → C5B 19:10 → CEDOF 20:58 → CED 20:58 → C5B 03-28 07:41 → CEDOF 03-28 07:41 → C5B 04-02 13:47
PROVIDERS: Emergency Medicine; Hospitalist; Internal Medicine; Internal Medicine Cardiovascular Disease; Internal Medicine Hematology
PROC: 30233N1 Transfusion of Nonautologous Red Blood Cells into Peripheral Vein, Percutaneous Approach (ICD-10-PCS; principal; 2017-03-28)
DX: D64.9 Anemia, unspecified (principal); J96.01 Acute respiratory failure with hypoxia; I50.32 Chronic diastolic (congestive) heart failure; J44.1 Chronic obstructive pulmonary disease with (acute) exacerbation; F19.20 Other psychoactive substance dependence, uncomplicated; E44.1 Mild protein-calorie malnutrition; Z68.1 Body mass index [BMI] 19.9 or less, adult; I11.0 Hypertensive heart disease with heart failure; R91.1 Solitary pulmonary nodule; Z79.01 Long term (current) use of anticoagulants; E78.5 Hyperlipidemia, unspecified; Z82.3 Family history of stroke; F17.210 Nicotine dependence, cigarettes, uncomplicated; Z88.2 Allergy status to sulfonamides; Z88.8 Allergy status to other drugs, medicaments and biological substances
CPT/HCPCS: 36415; 71010; 71020; 74177; 80048; 80053; 82308; 82550; 82553; 82607; 82728; 83540; 83550; 83735; 83880; 84132; 84484; 85025; 85027; 85610; 86850; 86900; 86901; 86923; 93005; 94640; 94664; 94760; 97116; 97162; 97167; 99285; G8978-GP; G8979-GP; G8987-GO; G8988-GO; J2920; J3420; P9016; Q9967